=== PATIENT | female | born 2000 | race Two or more races ===

== ENCOUNTER 2021-11-10 22:30 | Emergency (ER) | payer SELFPAY ==
[~2021-11-10] VITALS: Ht 167.6 cm; Wt 52.4 kg
[2021-11-10 23:13] LABS: BASO % 0 % (0-3); EOS # 0.1 x10^3/uL (0.0-0.7); EOS % 2 % (0-3); HEMATOCRIT 30.4 % (36.0-47.0); HEMOGLOBIN 10.3 g/dL (12.0-15.5); LYMPH # 1.7 x10^3/uL (1.0-4.8); LYMPH % 25 % (24-48); MEAN CORPUSCULAR HEMOGLOBIN 30 pg (25-35); MEAN CORPUSCULAR HGB CONC 34 g/dL (31-37); MEAN CORPUSCULAR VOLUME 88 fL (79-100); MONO # 0.6 x10^3/uL (0.0-1.1); MONO % 9 % (0-9); NEUT # 4.2 x10^3/uL (1.8-7.7); NEUT % 64 % (31-73); PLATELET COUNT 154 x10^3/uL (140-400); RED BLOOD COUNT 3.45 x10^6/uL (3.50-5.40); WHITE BLOOD COUNT 6.6 x10^3/uL (4.0-11.0)
[2021-11-10 23:24] LABS: CALCIUM 8.5 mg/dL (8.5-10.1); CREATININE 0.5 mg/dL (0.6-1.0); GFR 152.9; POTASSIUM 3.6 mmol/L (3.5-5.1)
[2021-11-10 23:30] LABS: ALBUMIN 2.7 g/dL (3.4-5.0); ALBUMIN/GLOBULIN RATIO 0.8 (1.0-1.7); TOTAL BILIRUBIN 0.1 mg/dL (0.2-1.0); TOTAL PROTEIN 5.9 g/dL (6.4-8.2)
[2021-11-10] MEDS ORDERED: ACETAMINOPHEN 500 MG TABLET PO ONE (23:30)
--- NOTE | 2021-11-11 00:05 | PHYS DOC ---
Past Medical History Past Surgical History: No Surgical History General Adult EDM: Chief Complaint: ABDOMINAL PAIN IN HPI: HPI: Patient is a 21 year old female 1 para 0 currently 15 weeks presenting to the ED today complaining of abdominal pain in that began on Wednesday. Patient states the pain is on the upper abdomen. Describes the pain as cramping, denies anything specifically exacerbating or relieving the pain, denies any nausea, vomiting, diarrhea, vaginal bleeding. She states she has been receiving OB care through her own doctor. Patient is [place]-speaking treating engineer helper line was used for [place] Review of Systems: Review of Systems: Constitutional: Denies fever or chills. [] Eyes: Denies change in visual acuity. [] HENT: Denies nasal congestion or sore throat. [] Respiratory: Denies cough or shortness of breath. [] Cardiovascular: Denies chest pain or edema. [] GI: Reports abdominal pain in , denies nausea, vomiting, bloody stools or diarrhea. [] : Denies dysuria. [] Musculoskeletal: Denies back pain or joint pain. [] Integument: Denies rash. [] Neurologic: Denies headache, focal weakness or sensory changes. [] Psychiatric: Denies depression or anxiety. [] Heart Score: C/O Chest Pain: N/A Risk Factors: Risk Factors: DM, Current or recent (<one month) smoker, HTN, HLP, family history of CAD, obesity. Risk Scores: Score 0 - 3: 2.5% MACE over next 6 weeks - Discharge Home Score 4 - 6: 20.3% MACE over next 6 weeks - Admit for Clinical Observation Score 7 - 10: 72.7% MACE over next 6 weeks - Early Invasive Strategies Current Medications: Current Medications Medications (Trade) Dose Ordered Sig/Therese Start Time Stop Time Status Last Admin Dose Admin Acetaminophen (Tylenol) 500 mg 1X ONCE 11/10/21 23:30 11/10/21 23:31 DC 11/10/21 23:13 500 MG Allergies: Allergies: Allergies Coded Allergies Type Severity Reaction Last Updated Verified No Known Drug Allergies 11/10/21 No Physical Exam: PE: Constitutional: Well developed, well nourished, no acute distress, non-toxic appearance. [] HENT: Normocephalic, atraumatic, bilateral external ears normal, oropharynx moist, no oral exudates, nose normal. [] Eyes: PERRLA, EOMI, conjunctiva normal, no discharge. [] Neck: Normal range of motion, no tenderness, supple, no stridor. [] Cardiovascular:Heart rate regular rhythm, no murmur [] Lungs & Thorax: Bilateral breath sounds clear to auscultation [] Abdomen: Gravid abdomen. Bowel sounds normal, soft, no tenderness, no masses, no pulsatile masses. [] Skin: Warm, dry, no erythema, no rash. [] Back: No tenderness, no CVA tenderness. [] Extremities: No tenderness, no cyanosis, no clubbing, ROM intact, no edema. [] Neurologic: Alert and oriented X 3, normal motor function, normal sensory function, no focal deficits noted. [] Psychologic: Affect normal, judgement normal, mood normal. [] Current Patient Data: Labs: Laboratory Tests Test 11/10/21 23:06 White Blood Count 6.6 x10^3/uL (4.0-11.0) Red Blood Count 3.45 x10^6/uL (3.50-5.40) L Hemoglobin 10.3 g/dL (12.0-15.5) L Hematocrit 30.4 % (36.0-47.0) L Mean Corpuscular Volume 88 fL (79-100) Mean Corpuscular Hemoglobin 30 pg (25-35) Mean Corpuscular Hemoglobin Concent 34 g/dL (31-37) Red Cell Distribution Width 14.0 % (11.5-14.5) Platelet Count 154 x10^3/uL (140-400) Neutrophils (%) (Auto) 64 % (31-73) Lymphocytes (%) (Auto) 25 % (24-48) Monocytes (%) (Auto) 9 % (0-9) Eosinophils (%) (Auto) 2 % (0-3) Basophils (%) (Auto) 0 % (0-3) Neutrophils # (Auto) 4.2 x10^3/uL (1.8-7.7) Lymphocytes # (Auto) 1.7 x10^3/uL (1.0-4.8) Monocytes # (Auto) 0.6 x10^3/uL (0.0-1.1) Eosinophils # (Auto) 0.1 x10^3/uL (0.0-0.7) Basophils # (Auto) 0.0 x10^3/uL (0.0-0.2) Maternal Serum HCG Beta Subunit 32077 mIU/mL (0-5) H Sodium Level 139 mmol/L (136-145) Potassium Level 3.6 mmol/L (3.5-5.1) Chloride Level 107 mmol/L (98-107) Carbon Dioxide Level 22 mmol/L (21-32) Anion Gap 10 (6-14) Blood Urea Nitrogen 9 mg/dL (7-20) Creatinine 0.5 mg/dL (0.6-1.0) L Estimated GFR (Cockcroft-Gault) 152.9 BUN/Creatinine Ratio 18 (6-20) Glucose Level 95 mg/dL (70-99) Calcium Level 8.5 mg/dL (8.5-10.1) Total Bilirubin 0.1 mg/dL (0.2-1.0) L Aspartate Amino Transferase (AST) 16 U/L (15-37) Alanine Aminotransferase (ALT) 23 U/L (14-59) Alkaline Phosphatase 48 U/L (46-116) Total Protein 5.9 g/dL (6.4-8.2) L Albumin 2.7 g/dL (3.4-5.0) L Albumin/Globulin Ratio 0.8 (1.0-1.7) L Laboratory Tests 11/10/21 23:06 Laboratory Tests 11/10/21 23:06 Vital Signs: Vital Signs Date Time Temp Pulse Resp B/P (MAP) Pulse Ox O2 Delivery O2 Flow Rate FiO2 11/10/21 22:30 98.2 80 18 114/70 (85) 100 Room Air 98.2 EKG: EKG: [] Radiology/Procedures: Radiology/Procedures: [] Course & Med Decision Making: Course & Med Decision Making Pertinent Labs and Imaging studies reviewed. (See chart for details) This is a 21-year-old female patient currently 15 weeks presenting to the ED today complaining of upper abdominal pain that began on [place]. Denies any vaginal bleeding. CBC with a hemoglobin of 10.3 and hematocrit of 30.4, encouraged to take p renatal vitamins. CMP with no acute findings. UA negative for infection. OB ultrasound noted for an IUP in breech position 18 weeks 6 days, heartbeat 144. Heart regular Patient was given Tylenol and a liter of fluid in the ED. Feeling better. Discharge to home. She does not have contact information of her BOOKSTORE CLERK so could not call them and let them know patient is here Discharge to home. Follow-up with OB in the course of this week. Provided return precautions Harvey Disclaimer: Harvey Disclaimer: This electronic medical record was generated, in whole or in part, using a voice recognition dictation system. Departure Departure Impression: Primary Impression: Abdominal pain in Qualified Codes: O26.892 - Other specified related conditions, second trimester; R10.9 - Unspecified abdominal pain Additional Impression: Anemia Qualified Codes: D64.9 - Anemia, unspecified Disposition: 01 HOME / SELF CARE / HOMELESS Condition: STABLE Referrals: UNKNOWN PCP NAME (PCP) Follow-up with your BOOKSTORE CLERK in the course of this week Patient Instructions: Abdominal Pain During Additional Instructions: You were evaluated in the emergency room for abdominal pain in . You are 18 weeks 6 days . You can take Tylenol as needed for your pain. Please contact your BOOKSTORE CLERK tomorrow morning and set up a follow-up appointment. Come back to the ED at any point symptoms worsen [facility] November 11, 2021 00:05
[2021-11-11 01:00] LABS: BACTERIA,URINE FEW /HPF (0-FEW); RBC,URINE 0 /HPF (0-2)
[2021-11-11 02:24] VITALS: BP 115/58
--- NOTE | 2021-11-11 12:23 | RAD ---
OB ULTRASOUND, > 14 WEEKS Clinical Indication: Reason: abd pain / Spl. Instructions: / History: Comparison: None. Technique: Multiple grayscale images, color Doppler, and M-mode images of the uterus are obtained. Findings: There is a single intrauterine gestation in breech presentation. The placenta is posterior and fundal in location without evidence of placenta previa. The amount of amniotic fluid appears appropriate. Amniotic fluid index is 9 cm. Cervical length is 3.9 cm. Biometrical data: BPD = 4.2 cm for 18 weeks 6 days. HC = 15.6 cm for 18 weeks 3 days. AC = 14 cm for 19 weeks 2 days. FL = 2.9 cm for 18 weeks 5 days. HC/AC ratio = 1.11. Overall, the estimated sonographic gestational age is 18 weeks and 6 days for an estimated date of de livery of April 07, 2022. The estimated date of delivery provided by the last menstrual period is un known. Estimated weight is 269 +/- 40 grams. The estimated heart rate is 144 beats per minute. A complete anatomic survey is not performed due to early gestational age. Anatomic survey can b e performed at 20 weeks gestation. The maternal ovaries are not identified in the adnexa due to overlying bowel gas. Impression: Single live intrauterine gestation with estimated sonographic gestational age of 18 weeks and 6 days. Electronically signed by: Monty Santiago MD (11/11/2021 12:52 AM) [facility]
== END 2021-11-11 01:54 | disposition home or self-care (01) ==
LOC: MERGE 22:30 → ER 22:30
DX: O26.892 Other specified pregnancy related conditions, second trimester (principal); R10.10 Upper abdominal pain, unspecified; D64.9 Anemia, unspecified; Z3A.18 18 weeks gestation of pregnancy
CPT/HCPCS: 36415; 76815; 80053; 81001; 84702; 85025; 99284-25